=== PATIENT | female | born 1990 | race Caucasian/White ===

== ENCOUNTER → 2019-03-23 | Outpatient (CLI) | payer OTHER, SELFPAY ==
[2019-03-23 15:11] VITALS: BMI 25.0
[2019-03-23 16:28] LABS: Absolute Lymphocyte Count 1.87 X10^3/uL (0.83-4.51); Absolute Neutrophil Count 10.2 X10^3/uL (2.0-7.7); Basophil# 0.06 X10^3/uL; Basophil% 0.5 % (0-1); Eosinophil# 0.15 X10^3/uL; Eosinophils% 1.2 % (0-5); Hematocrit 31.6 % (37-47); Hemoglobin 10.5 g/dL (12.0-15.0); Lymphocyte # 1.87 X10^3/ul (4.0); Lymphocyte % 14.5 % (19-41); Mean Corp Hgb Conc 33.2 g/dL (32-36); Mean Corpuscular Hgb 29.8 pg (27.0-32.0); Mean Corpuscular Volume 89.8 fL (81-99); Mean Platelet Vol. 10.5 fl (6.2-12.0); Monocyte# 0.58 X10^3/uL; Monocyte% 4.5 % (0-10); NRBC Flagged by Analyzer 0 % (0-5); Neutrophil # 10.16 X10^3/uL (2.7-7.7); Neutrophil % 78.5 % (47-70); Platelet Count 209 K/mm3 (150-450); RBC Distribution Width CV 13.1 % (11.6-14.6); RBC Distribution Width SD 42.6 fl (35.1-43.9); Red Blood Count 3.52 M/mm3 (4.2-5.4); White Blood Count 12.9 K/mm3 (4.4-11.0)
[2019-03-23 16:56] LABS: Glucose Challenge Gest 1H 50g 161 mg/dL (70-140)
== END | disposition home or self-care (01) ==
LOC: LAB 15:43
PROVIDERS: Referring Provider Nurse Practitioner Women's Health; Visit Provider Nurse Practitioner Women's Health
DX: Z34.90 Encounter for supervision of normal pregnancy, unspecified, unspecified trimester (principal)
CPT/HCPCS: 36415; 82950; 85025; 86850; 86900; 86901

== ENCOUNTER → 2019-03-29 | Outpatient (CLI) | payer OTHER, SELFPAY ==
[2019-03-23 15:11] VITALS: BMI 25.0
[2019-03-29 07:47] LABS: Glucose GTT-Gestation. Fasting 78 mg/dL (<105)
[2019-03-29 08:38] LABS: Glucose GTT-Gestational 1 Hr 174 mg/dL (<190)
[2019-03-29 09:54] LABS: Glucose GTT-Gestational 2 Hr 159 mg/dL (<165)
[2019-03-29 11:44] LABS: Glucose GTT-Gestational 3 Hr 80 L (<145)
== END | disposition home or self-care (01) ==
PROVIDERS: Referring Provider Obstetrics & Gynecology; Visit Provider Obstetrics & Gynecology
DX: O99.810 Abnormal glucose complicating pregnancy (principal); Z3A.00 Weeks of gestation of pregnancy not specified
CPT/HCPCS: 36415; 82951; 82952

== ENCOUNTER 2019-04-09 16:56 | Outpatient (CLI) | payer OTHER, SELFPAY ==
[2019-04-09 16:20] VITALS: BMI 27.4
[2019-04-09 17:01] VITALS: BMI 27.8
--- NOTE | 2019-04-09 17:30 | OB.TRI.PN ---
Progress Notes Date of Service: 04/10/19 Progress Note: Patient presents for triage evaluation secondary to blood pressures in the office being elevated. Patient is 30 weeks and initial pressure was elevated and all repeats were normal within the 1 teens over 70s. Patient is asymptomatic without any headaches or blurry vision. Labs were collected and blood work was within normal limits however urine protein creatinine ratio was mildly elevated FHT: 140 moderate variability reactive no decelerations category I tracing [place]: No regular contractions Assessment and plan: Proteinuria in reactive NST, reassuring maternal and status patient discharged to home to follow-up tomorrow for repeat blood pressure and return in 24-hour urine. See problem list details for additional plan information. Laboratory Studies: Laboratory Tests 04/09/19 04/09/19 04/09/19 Range/Units 17:10 17:10 17:10 WBC (4.4-11.0) K/mm3 RBC (4.2-5.4) M/mm3 Hgb (12.0-15.0) g/dL Hct (37-47) % MCV (81-99) fL MCH (27.0-32.0) pg MCHC (32-36) g/dL RDW Std Deviation (35.1-43.9) fl RDW Coeff of Linda (11.6-14.6) % Plt Count (150-450) K/mm3 MPV (6.2-12.0) fl PT 12.7 (11.7-14.9) SECONDS INR 1.0 APTT 24.6 (24.1-36.2) Seconds Creatinine 0.64 (0.55-1.02) mg/dL Estim Creat Clear Calc 123.86 ml/min Est GFR (MDRD) Af Amer 139 (>60) mL/min Est GFR (MDRD) Non-Af 115 (>60) mL/min Uric Acid 2.9 (2.6-6.0) mg/dL AST 22 (15-37) U/L ALT 30 (13-56) U/L U Random Total Protein 9.5 (<11.9) mg/dL Urine Creatinine 28.60 (NO RANGE EST.) mg/dL Protein/Creatinin Ratio 332 H (0-200) mg/g CRE 04/09/19 Range/Units 17:10 WBC 11.3 H (4.4-11.0) K/mm3 RBC 3.75 L (4.2-5.4) M/mm3 Hgb 10.9 L (12.0-15.0) g/dL Hct 33.6 L (37-47) % MCV 89.6 (81-99) fL MCH 29.1 (27.0-32.0) pg MCHC 32.4 (32-36) g/dL RDW Std Deviation 44.7 H (35.1-43.9) fl RDW Coeff of Linda 13.7 (11.6-14.6) % Plt Count 201 (150-450) K/mm3 MPV 10.7 (6.2-12.0) fl PT (11.7-14.9) SECONDS INR APTT (24.1-36.2) Seconds Creatinine (0.55-1.02) mg/dL Estim Creat Clear Calc ml/min Est GFR (MDRD) Af Amer (>60) mL/min Est GFR (MDRD) Non-Af (>60) mL/min Uric Acid (2.6-6.0) mg/dL AST (15-37) U/L ALT (13-56) U/L U Random Total Protein (<11.9) mg/dL Urine Creatinine (NO RANGE EST.) mg/dL Protein/Creatinin Ratio (0-200) mg/g CRE - Problem List (1) Proteinuria affecting in third trimester Status: Acute Comment: if 24 hour urine elevated plan BMZ course and home bp checks, growth US and weekly nsts. preeclampsia precautions reviewed. (2) Elevated blood pressure affecting in third trimester, antepartum Status: Acute Multi Select Codes - Urinary/Genital Urinary/Genital CPT Codes: 30343-29 non-stress test Interp
[2019-04-09 17:43] LABS: Hematocrit 33.6 % (37-47); Hemoglobin 10.9 g/dL (12.0-15.0); Mean Corp Hgb Conc 32.4 g/dL (32-36); Mean Corpuscular Hgb 29.1 pg (27.0-32.0); Mean Corpuscular Volume 89.6 fL (81-99); Mean Platelet Vol. 10.7 fl (6.2-12.0); Platelet Count 201 K/mm3 (150-450); RBC Distribution Width CV 13.7 % (11.6-14.6); RBC Distribution Width SD 44.7 fl (35.1-43.9); Red Blood Count 3.75 M/mm3 (4.2-5.4); White Blood Count 11.3 K/mm3 (4.4-11.0)
[2019-04-09 17:53] LABS: Partial Thromboplast Time 24.6 Seconds (24.1-36.2); Prothrombin Time (Protime)PT. 12.7 SECONDS (11.7-14.9)
[2019-04-09 18:11] LABS: Creatinine, Serum 0.64 mg/dL (0.55-1.02); EST Glomerular Filtration Rate 115 mL/min (>60); Estimated Creatinine Clearance 123.86 ml/min
[2019-04-09 18:12] LABS: AST(SGOT) 22 U/L (15-37); Alanine Aminotransfer ALT/SGPT 30 U/L (13-56); Est Glom Filt Rate - Afr Amer 139 mL/min (>60); Uric Acid 2.9 mg/dL (2.6-6.0)
[2019-04-09 19:28] LABS: Protein, Urine (Random) 9.5 mg/dL (<11.9); Protein:Creat Ratio 332 mg/g CRE (0-200)
[2019-04-10 20:10] LABS: 24 Hour Urine Protein 301.6 mg/24HR (<150 MG/24HR); 24HR. UA Prot. Total Volume 2600 mL; 24HR. Urine Creatinine 1.31 g/24 HR (0.70-1.90); Urine Protein (24 Hour) 11.6 mg/dL (<11.9)
== END 2019-04-09 19:37 | disposition home or self-care (01) ==
LOC: WPOUT 16:58 → WP 16:59
PROVIDERS: Referring Provider Obstetrics & Gynecology; Visit Provider Obstetrics & Gynecology
DX: O16.3 Unspecified maternal hypertension, third trimester (principal); O12.13 Gestational proteinuria, third trimester; Z3A.30 30 weeks gestation of pregnancy
CPT/HCPCS: 36415; 59025; 59050; 82565; 82570; 84156; 84450; 84460; 84550; 85027; 85610; 85730; 99218; G0378

== ENCOUNTER 2019-04-10 19:00 | Outpatient (CLI) | payer OTHER, SELFPAY ==
[2019-04-10 19:19] VITALS: BMI 27.8
[2019-04-10] MEDS: Betamethasone/Betamethasone 30 MG/5 ML Vial 12 MG IM (20:36)
--- NOTE | 2019-04-11 08:53 | OB.TRI.PN ---
Progress Notes Date of Service: 04/11/19 Progress Note: Patient seen for second steroid dose. Normal blood pressure denies any headache or blurry vision. Follow-up in office tomorrow. - Problem List (1) Prematurity of fetus Status: Acute (2) Proteinuria affecting in third trimester Status: Acute Comment: if 24 hour urine elevated plan BMZ course and home bp checks, growth US and weekly nsts. preeclampsia precautions reviewed. Multi Select Codes - Urinary/Genital Urinary/Genital CPT Codes: Other Procedure See Report - no charge
--- NOTE | 2019-04-12 21:55 | OB.TRI.PN ---
Progress Notes Date of Service: 04/10/19 Progress Note: seen for 24 hour urine- borderline elevated recommend giving course of steroids. proteinuria of reviewed preeclampsia precautions, normal bps here - Problem List (1) Prematurity of fetus Status: Acute (2) Proteinuria affecting in third trimester Status: Acute Comment: if 24 hour urine elevated plan BMZ course and home bp checks, growth US and weekly nsts. preeclampsia precautions reviewed. Multi Select Codes - Urinary/Genital Urinary/Genital CPT Codes: Other Procedure See Report - no charge
== END 2019-04-10 20:40 | disposition home or self-care (01) ==
LOC: WPOUT 19:20 → OBT 19:22
PROVIDERS: Visit Provider Obstetrics & Gynecology
DX: O12.13 Gestational proteinuria, third trimester (principal); Z3A.00 Weeks of gestation of pregnancy not specified
CPT/HCPCS: 96372; 99218; G0378; J0702

== ENCOUNTER 2019-04-11 19:05 | Outpatient (CLI) | payer OTHER, SELFPAY ==
[2019-04-10 19:19] VITALS: BMI 27.8
[2019-04-11 19:43] VITALS: BMI 27.7
[2019-04-11] MEDS: Betamethasone/Betamethasone 30 MG/5 ML Vial 12 MG IM (19:51)
--- NOTE | 2019-05-03 18:42 | OB.TRI.PN ---
Progress Notes Date of Service: 04/19/19 Progress Note: celestone shot for prematurity Multi Select Codes - Urinary/Genital Urinary/Genital CPT Codes: Other Procedure See Report - no charge
== END 2019-04-11 19:55 | disposition home or self-care (01) ==
LOC: WPOUT 19:17 → WP 19:18
PROVIDERS: Referring Provider Obstetrics & Gynecology; Visit Provider Obstetrics & Gynecology
DX: Z34.90 Encounter for supervision of normal pregnancy, unspecified, unspecified trimester (principal)
CPT/HCPCS: 99218; G0378; J0702

== ENCOUNTER → 2019-04-19 13:38 | Outpatient (CLI) | payer OTHER, SELFPAY ==
[2019-04-12 08:10] VITALS: BMI 27.7
[2019-04-12 14:58] VITALS: BMI 27.7
--- NOTE | 2019-04-19 13:40 | US_ITS ---
STUDY: SECOND AND THIRD TRIMESTER OBSTETRICAL ULTRASOUND - LIMITED REASON FOR EXAM: Female, 29 years old. growth LMP: 09/06/2018 PRIOR ULTRASOUND: None. TECHNIQUE: Transabdominal ultrasound evaluation was performed. FINDINGS: There is a single intrauterine fetus. The fetus is in a cephalic presentation. There is demonstrated cardiac activity with a heart rate of 130 bpm. There is a normal amniotic fluid volume. The largest amniotic fluid pocket measures 4.43 cm. The amniotic fluid index (ERMELINDA) is 11.92 cm. The placenta is anterior with a marginal previa. There are Grade 2 placental changes. The cervix measures 3.04 cm in length. BIOMETRY: BPD: 8.01 cm: 32 weeks, 2 days HC: 29.83 cm: 33 weeks, 1 days AC: 27.95 cm: 32 weeks, 0 days FL: 6.21 cm: 32 weeks, 2 days Age by LMP: 32 weeks, 1 days. SETH by LMP: 06/13/2019. age by current US: 32 weeks, 3 days. SETH by current US: 06/11/2019. Estimated weight: 1917 grams, +/- 280 grams, 40 percentile. US/OB Limited With Biometrics IMPRESSION: Single live intrauterine gestation at approximately 32 weeks and 3 days based on the current ultrasound. Electronically Signed: Fredy Ponce, at 18:40 EDT Tel , Service support ,
== END ==
PROVIDERS: Referring Provider Obstetrics & Gynecology; Visit Provider Obstetrics & Gynecology
DX: Z34.90 Encounter for supervision of normal pregnancy, unspecified, unspecified trimester (principal)
CPT/HCPCS: 76816

== ENCOUNTER 2019-05-21 12:32 | Outpatient (CLI) | payer OTHER, SELFPAY ==
[2019-04-12 08:10] VITALS: BMI 27.7
[2019-05-13 15:32] VITALS: BMI 27.7
--- NOTE | 2019-05-21 12:34 | US_ITS ---
STUDY: SECOND AND THIRD TRIMESTER OBSTETRICAL ULTRASOUND REASON FOR EXAM: Female, 29 years old growth. LMP: September 05, 2018. TECHNIQUE: Transabdominal TECHNICAL QUALITY: Adequate. PRIOR ULTRASOUND: Comparison is made with prior study of April 19, 2019. FINDINGS: There is a single intrauterine fetus. The fetus is in a cephalic presentation. There is demonstrated cardiac activity with a heart rate of 141 bpm. There is a normal amniotic fluid volume. The largest amniotic fluid pocket measures 6.8 cm. The amniotic fluid index (ERMELINDA) is 16 cm. The placenta is anterior in location and is not low lying. There are Grade 2 placental changes. The cervix was not measured due to the position of the head. The adnexal regions are not visualized. BIOMETRY: BPD: 8.98 cm: 37 weeks, 2 days HC: 33.17 cm: 37 weeks, 5 days AC: 33.69 cm: 37 weeks, 4 days FL: 7.04 cm: 36 weeks, 0 days CI: 79% FL/BPD: 78% FL/HC: FL/AC: 21% HC/AC: 0.98 age by current US: 37 weeks, 2 days. SETH by current US: June 09, 2019. Estimated weight: 3121 grams, +/- 462 grams, 65 %. age by prior US: 37 weeks, 0 days. SETH by prior US: June 11, 2019. Age by LMP: 36 weeks, 5 days. SETH by LMP: June 13, 2019. US/OB Limited With Biometrics IMPRESSION: Single live intrauterine gestation with a mean gestational age of 37 weeks. The measurements obtained today following within the normal expected range. Electronically Signed: Cullen Johnson, at 13:14 EDT , Service support ,
[2019-05-21 14:27] VITALS: BMI 28.6
[2019-05-21 14:38] LABS: Absolute Lymphocyte Count 2.13 X10^3/uL (0.83-4.51); Absolute Neutrophil Count 8.7 X10^3/uL (2.0-7.7); Basophil# 0.07 X10^3/uL; Basophil% 0.6 % (0-1); Eosinophil# 0.12 X10^3/uL; Hematocrit 33.9 % (37-47); Hemoglobin 11.3 g/dL (12.0-15.0); Lymphocyte # 2.13 X10^3/ul (4.0); Lymphocyte % 17.9 % (19-41); Mean Corp Hgb Conc 33.3 g/dL (32-36); Mean Corpuscular Volume 89.9 fL (81-99); Mean Platelet Vol. 10.9 fl (6.2-12.0); Monocyte# 0.77 X10^3/uL; Monocyte% 6.5 % (0-10); NRBC Flagged by Analyzer 0 % (0-5); Neutrophil # 8.71 X10^3/uL (2.7-7.7); Neutrophil % 73.2 % (47-70); Platelet Count 171 K/mm3 (150-450); RBC Distribution Width CV 13.5 % (11.6-14.6); RBC Distribution Width SD 44.4 fl (35.1-43.9); Red Blood Count 3.77 M/mm3 (4.2-5.4); White Blood Count 11.9 K/mm3 (4.4-11.0)
--- NOTE | 2019-05-21 19:06 | OB.TRI.HP_ITS ---
History of Present Illness Date of Service: 05/21/19 Was patient seen by the physician?: Yes Reason For Visit: Non reassuring NST in office Date of Service: 05/21/19 Final SETH: 06/13/19 Gestational age: 36 Weeks and 5 Days History of Present Illness: 29 yo with hx of recurrent SAB and anemia with this , sent to [facility] from office for nonreassuring NST and cbc; pt states her cervix was checked in office and found to be 0. She does report feeling contractions, but with minimal pain, max pain score 3/10 Allergies No Known Allergies Allergy (Verified 05/21/19 14:28) - Pertinent Past Medical History Surgical History: Past Surgical History (Last Reviewed 05/21/19 @ 13:20 by Melani French) History of dilation and curettage Laboratory Studies: Laboratory Tests 05/21/19 Range/Units 14:25 WBC 11.9 H (4.4-11.0) K/mm3 RBC 3.77 L (4.2-5.4) M/mm3 Hgb 11.3 L (12.0-15.0) g/dL Hct 33.9 L (37-47) % MCV 89.9 (81-99) fL MCH 30.0 (27.0-32.0) pg MCHC 33.3 (32-36) g/dL RDW Std Deviation 44.4 H (35.1-43.9) fl RDW Coeff of Linda 13.5 (11.6-14.6) % Plt Count 171 (150-450) K/mm3 MPV 10.9 (6.2-12.0) fl Immature Gran % (Auto) 0.800 (0.0-0.9) % Neut % (Auto) 73.2 H (47-70) % Lymph % (Auto) 17.9 L (19-41) % [place] % (Auto) 6.5 (0-10) % Eos % (Auto) 1.0 (0-5) % Baso % (Auto) 0.6 (0-1) % Absolute Neuts (auto) 8.7 H (2.0-7.7) X10^3/uL Absolute Lymphs (auto) 2.13 (0.83-4.51) X10^3/uL Nucleated RBC % 0 (0-5) % Physical Exam General: Alert, Oriented x3, Cooperative, No apparent distress HEENT: PERRLA, EOMI Cardiovascular: Regular rate, Regular Rhythm Lungs: Clear to auscultation, Normal air movement Abdomen: Bowel Sounds Present, Soft, Non Tender, Non-Distended, Gravid Neurological: Cranial nerves II-XII grossly intact, Deep Tendon Reflexes 2+/4 and Symmetrical SPANISH SPEAKING NANNY: Normal external genitalia Presentation: Cephalic Cervix Dilation (cm): 1 - fingertip Station: -3 Effacement (%): 50 - soft NST - FHR Rate Baby A Baseline: 130 Variability:: Moderate Accelerations:: 15 x 15 NST Reactive:: Yes FHR Category:: Category I - One questionable decel at 1507, likely maternal; o verall reassuring Uterine Activity:: Q 2-5 Impression/Plan Assessment: 29 yo with at 36w5d gestation Hx of recurrent SAB Hx of anemia with this , cbc today WNL for third trimester Nonreassuring NST in office today No cervical change from office check today Cat 1 FHTs Plan: D/w Dr. Segundo DC home with labor precautions, FM counts, increased rest and fluids
== END 2019-05-21 19:20 | disposition home or self-care (01) ==
LOC: OPUS 12:33 → WPOUT 14:14 → WP 14:14
PROVIDERS: Nurse Practitioner Women's Health; Referring Provider Advanced Practice Midwife; Visit Provider Advanced Practice Midwife
DX: O99.013 Anemia complicating pregnancy, third trimester (principal); D64.9 Anemia, unspecified; O26.23 Pregnancy care for patient with recurrent pregnancy loss, third trimester; Z3A.36 36 weeks gestation of pregnancy
CPT/HCPCS: 36415; 59025; 59050; 76816; 85025; 87077; 87081; 87186; 99218; G0378; J0702

== ENCOUNTER 2019-06-03 00:36 | Inpatient (IN) | payer OTHER, SELFPAY ==
[2019-03-23 15:11] VITALS: BMI 25.0
[2019-05-28 15:40] VITALS: BMI 28.6
[2019-06-03 00:32] LABS: ROM Internal Control Test YES-OK TO RESULT pt. (Internal QC)
[2019-06-03 00:33] LABS: ROM Patient Test POSITIVE (Negative)
[2019-06-03 00:35] VITALS: BMI 29.0
[2019-06-03] MEDS: Lactated Ringers 1,000 ML 50 ML IV (01:40)
[2019-06-03 01:57] LABS: Absolute Lymphocyte Count 2.11 X10^3/uL (0.83-4.51); Absolute Neutrophil Count 7.5 X10^3/uL (2.0-7.7); Basophil# 0.05 X10^3/uL; Basophil% 0.5 % (0-1); Eosinophil# 0.19 X10^3/uL; Eosinophils% 1.8 % (0-5); Lymphocyte # 2.11 X10^3/ul (4.0); Mean Corp Hgb Conc 32.4 g/dL (32-36); Mean Corpuscular Hgb 29.2 pg (27.0-32.0); Monocyte# 0.57 X10^3/uL; Monocyte% 5.4 % (0-10); NRBC Flagged by Analyzer 0 % (0-5); Neutrophil # 7.54 X10^3/uL (2.7-7.7); Neutrophil % 71.3 % (47-70); Platelet Count 186 K/mm3 (150-450); RBC Distribution Width CV 13.8 % (11.6-14.6); RBC Distribution Width SD 45.4 fl (35.1-43.9); Red Blood Count 4.11 M/mm3 (4.2-5.4); White Blood Count 10.6 K/mm3 (4.4-11.0)
[2019-06-03 02:21] LABS: ALB/GLOB Ratio 0.7 RATIO (0.9-2.4); AST(SGOT) 23 U/L (15-37); Alanine Aminotransfer ALT/SGPT 24 U/L (13-56); Albumin, Serum 2.8 g/dL (3.2-5.0); Alkaline Phosphatase 141 U/L (45-117); Anion Gap 9 (5-15); BUN 7 mg/dL (7-18); Calcium,Total 10.3 mg/dL (8.5-10.1); Chloride 107 mmol/L (98-107); Creatinine, Serum 0.58 mg/dL (0.55-1.02); EST Glomerular Filtration Rate 128 mL/min (>60); Est Glom Filt Rate - Afr Amer 154 mL/min (>60); Estimated Creatinine Clearance 136.67 ml/min; Glucose 85 mg/dL (74-106); Potassium 3.7 mmol/L (3.5-5.1); Protein, Total 6.8 g/dL (6.4-8.2); Sodium Level 140 mmol/L (136-145)
[2019-06-03 02:38] LABS: Rubella IgG 356.8 IU/mL
[2019-06-03] MEDS: Ondansetron 4 MG/2 ML Vial IV (04:41)
[2019-06-03] MEDS: 0.9% Saline Lock 10 ML Syringe IV (04:41)
[2019-06-03] MEDS: Lactated Ringers 500 ML 999 ML IV (05:00)
[2019-06-03] MEDS: fentaNYL-bupivacaine (epidural) 100 ML BAG EPIDURAL ×2 (05:44→09:55)
[2019-06-03] MEDS: Lactated Ringers 1,000 ML 200 ML IV ×2 (08:34→14:37)
--- NOTE | 2019-06-03 12:20 | HP.PCM_ITS ---
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 declines ntd screening. anatomy-normal (6) Proteinuria affecting in third trimester Status: Acute Comment: if 24 hour urine elevated plan BMZ course and home bp checks, growth US and weekly nsts. preeclampsia precautions reviewed. (7) Rh negative status during Status: Acute Qualifiers: Trimester: second trimester Qualified Code(s): O26.892 - Other specified related conditions, second trimester; Z67.91 - Unspecified blood type, Rh negative Comment: rhogam at 28 weeks and PRN (8) Supervision of normal Status: Acute Qualifiers: Normal : other normal Trimester: third trimester Qualified Code(s): Z34.83 - Encounter for supervision of other normal , third trimester Comment: PRR SETH 06/13/19 gender secret Ronald (9) SROM (spontaneous rupture of membranes) Status: Acute History Date of Admission: 06/03/19 Final SETH: 06/13/19 Gestational age: 38 Weeks and 5 Days History of this : This is a 29 year-old, , at 38 weeks gestational age presents with SROM and onset of labor within 6 hours after. she had a complicated by previ ous miscarriage and was an infertility transfer. she denies any infectious symptoms and contractions are regular and painful. Surgical History: Surgical History (Last Reviewed 05/28/19 @ 15:39 by Macy Casiano) History of dilation and curettage Z98.890 Allergies No Known Allergies Allergy (Verified 06/03/19 00:32) Home Medications: Home Medications aspirin 81 mg chewable tablet 81 mg PO DAILY 01/01/19 vitamin#30 30 mg iron-10 mg iron-folic acid 1 mg-omg3 capsule 1 cap PO DAILY cap 01/01/19 ferrous sulfate 325 mg (65 mg iron) tablet 325 mg PO DAILY 04/12/19 Smoking Status: Never smoker Alcohol: None Number of Fetus(es): 1 NST - FHR Rate Baby A Baseline: 130 Variability:: Moderate Accelerations:: 15 x 15 Decelerations:: None NST Reactive:: Yes, Appropriate for gestational age FHR Category:: Category I Uterine Activity:: q 2-3 History Past Pregnancies: Past Pregnancies Delivery Date Name GA/Weeks Outcome Route Weight Gender Labor Length Anesthesia Delivery Location Provider FOB Labs: Mom's Problem List Problem Status Onset Code PROM (premature rupture of membranes) Acute O42.90 Mom's Labs & Results 06/03/19 06/03/19 06/03/19 00:25 01:40 01:40 WBC 10.6 RBC 4.11 L Hgb 12.0 Hct 37.0 MCV 90.0 MCH 29.2 MCHC 32.4 RDW Std Deviation 45.4 H RDW Coeff of Linda 13.8 Plt Count 186 MPV 11.0 Immature Gran % (Auto) 1.000 H Neut % (Auto) 71.3 H Lymph % (Auto) 20.0 [place] % (Auto) 5.4 Eos % (Auto) 1.8 Baso % (Auto) 0.5 Absolute Neuts (auto) 7.5 Absolute Lymphs (auto) 2.11 Nucleated RBC % 0 Sodium Potassium Chloride Carbon Dioxide Anion Gap BUN Creatinine Estim Creat Clear Calc Est GFR (MDRD) Af Amer Est GFR (MDRD) Non-Af BUN/Creatinine Ratio Glucose Calcium Total Bilirubin AST ALT Alkaline Phosphatase Total Protein Albumin Globulin Albumin/Globulin Ratio Vag Amniotic Fld Detect POSITIVE H Rubella IgG Antibody Blood Type O NEGATIVE Antibody Screen Not Reportable Screen Baby's Blood Type Baby's DEBRA 06/03/19 06/03/19 06/03/19 01:40 01:40 01:40 WBC RBC Hgb Hct MCV MCH MCHC RDW Std Deviation RDW Coeff of Linda Plt Count MPV Immature Gran % (Auto) Neut % (Auto) Lymph % (Auto) [place] % (Auto) Eos % (Auto) Baso % (Auto) Absolute Neuts (auto) Absolute Lymphs (auto) Nucleated RBC % Sodium 140 Potassium 3.7 Chloride 107 Carbon Dioxide 24.0 Anion Gap 9 BUN 7 Creatinine 0.58 Estim Creat Clear Calc 136.67 Est GFR (MDRD) Af Amer 154 Est GFR (MDRD) Non-Af 128 BUN/Creatinine Ratio 12.0 Glucose 85 Calcium 10.3 H Total Bilirubin 0.20 AST 23 ALT 24 Alkaline Phosphatase 141 H Total Protein 6.8 Albumin 2.8 L Globulin 4.0 Albumin/Globulin Ratio 0.7 L Vag Amniotic Fld Detect Rubella IgG Antibody 356.8 Blood Type Antibody Screen NEGATIVE Screen Baby's Blood Type Baby's DEBRA 06/03/19 18:40 WBC RBC Hgb Hct MCV MCH MCHC RDW Std Deviation RDW Coeff of Linda Plt Count MPV Immature Gran % (Auto) Neut % (Auto) Lymph % (Auto) [place] % (Auto) Eos % (Auto) Baso % (Auto) Absolute Neuts (auto) Absolute Lymphs (auto) Nucleated RBC % Sodium Potassium Chloride Carbon Dioxide Anion Gap BUN Creatinine Estim Creat Clear Calc Est GFR (MDRD) Af Amer Est GFR (MDRD) Non-Af BUN/Creatinine Ratio Glucose Calcium Total Bilirubin AST ALT Alkaline Phosphatase Total Protein Albumin Globulin Albumin/Globulin Ratio Vag Amniotic Fld Detect Rubella IgG Antibody Blood Type Antibody Screen Screen NEGATIVE Baby's Blood Type A POSITIVE Baby's DEBRA NEGATIVE Course Did the patient receive Yes care? Labs Blood Type: O RH: NEGATIVE RPR/VDRL/Syphilis Nonreactive Rubella status Immune HbSAg Negative Date Done: 11/24/18 Chlamydia Negative Gonorrhea Negative HIV/AIDS Non-Reactive Group B Strep: Positive Current Obstetrical History Gestational Diabetes No Incompetent Cervix No Infertility No IUGR No Macrosomia No Hypertension/Pre-eclampsia No Placenta Previa/Abruption No PTL/PROM No Uterine anomaly No Oligohydramnios No Polyhydramnios No Multiple gestation No Past Medical History Asthma No Diabetes No Hypertension No Heart disease No Mitral valve prolapse No Neurologic/Seizure disorder/ No Migraines Kidney disease No Liver disease No Varicosities No Clotting disorders/Hx of DVT No Thyroid Dysfunction No Other medical diseases No Psychiatric disorders No Major trauma No Abnormal PAP smear No Sleep apnea No Mammogram in the last 2 years No Medications Taken During Reason for taking medication [ 1st trimester for 3 months, history of losses lovenox] Reason for taking medication [ 1st trimester for 3 months, history of losses Progesterone] Social History Marital Status: Alleged father Ronald Kelsey Hx Smoking No Smoking Status Never smoker Review of Systems Constitutional: Denies: Fever, Malaise Eyes: Denies: Blurred vision, Vision Change HEENT: Denies: Head Aches, Visual Changes Cardiovascular: Denies: Chest Pain, Palpitations Respiratory: Denies: Cough, Shortness of Breath, Wheezing Gastrointestinal: Denies: Abdominal Pain, Diarrhea, Nausea, Vomiting Genitourinary: Denies: Dysuria, Hematuria Musculoskeletal: Denies: Joint Pain, Muscle pain Skin: Denies: Lesions, Rash Neurological: Denies: Blurred vision, Focal weakness, Headaches Psychiatric: Denies: Anxiety, Depression Endocrine: Denies: Heat/ Cold Intolerance Hematologic/ Lymphatic: Denies: Easy Bruising, Easy Bleeding Physical Exam General: Alert, Cooperative, No apparent distress HEENT: Atraumatic, Normocephalic. Negative for: Thyromegaly, Lymphadenopathy Cardiovascular: Regular rate Lungs: Normal air movement Abdomen: Soft, Non Tender, Gravid Neurological: Deep Tendon Reflexes 2+/4 and Symmetrical, Neuro grossly intact. Negative for: Clonus STRIPPING CUTTER AND WINDER: Normal external genitalia. Negative for: Vulvar lesions Estimated gestational size: Appropriate for gestational size Presentation: Cephalic Assessment/Plan All Active Problems (Last Reviewed 05/28/19 @ 15:39 by Macy Casiano) SROM (spontaneous rupture of membranes) (Acute) Group B streptococcal infection during (Acute) Proteinuria affecting in third trimester (Acute) Anemia during (Acute) Abnormal glucose affecting (Acute) (Acute) Supervision of normal (Acute) History of recurrent miscarriages (Acute) Rh negative status during (Acute) Elevated blood pressure affecting in third trimester, antepartum (Reso lved) Prematurity of fetus (Resolved) This is a 29 year-old, at 38 weeks gestational age IAL SROM. Patient presents IAL, plan expectant management for , pitocin PRN Pain management: minima intervention but open to epidural. GBS positive plan IV clindamycin based on sensitivity. Management of any complications: proteinuria with nl bps I have reviewed the [facility] and made any clinically relevant updates.
[2019-06-03] MEDS: Oxytocin 30 units/NS 500 ml 30 UNITS/500 ML IV.SOLN 334 UNITS IV (16:40)
--- NOTE | 2019-06-03 16:57 | PCM.OPRPT ---
Problem List (1) Group B streptococcal infection during Status: Acute Comment: treat in labor (2) Proteinuria affecting in third trimester Status: Acute Comment: if 24 hour urine elevated plan BMZ course and home bp checks, growth US and weekly nsts. preeclampsia precautions reviewed. (3) Anemia during Status: Acute Comment: iron, check cbc at 36 weeks (4) Abnormal glucose affecting Status: Acute Comment: 3 hr normal (5) Status: Acute Qualifiers: Weeks of gestation: 37 weeks Qualified Code(s): Z3A.37 - 37 weeks gestation of Comment: genetic and carrier screening negative. declines ntd screening. anatomy-normal (6) Supervision of normal Status: Acute Qualifiers: Normal : other normal Trimester: third trimester Qualified Code(s): Z34.83 - Encounter for supervision of other normal , third trimester Comment: PRR SETH 06/13/19 gender secret Ronald (7) History of recurrent miscarriages Status: Acute Comment: RGI transfer (8) Rh negative status during Status: Acute Qualifiers: Trimester: second trimester Qualified Code(s): O26.892 - Other specified related conditions, second trimester; Z67.91 - Unspecified blood type, Rh negative Comment: rhogam at 28 weeks and PRN (9) PROM (premature rupture of membranes) Status: Acute Report of Operation Date of Procedure: 06/03/19 Pre-Operative Diagnosis: ial Post-Operative Diagnosis: same Surgery/Procedure Performed:: Vaginal Delivery Maternal Presentation: Active Labor ial SROM Amniotic Membrane Rupture Type: Spontaneous at home Amniotic Fluid Description: Clear Date of Procedure: 06/03/19 Pre-Operative Diagnosis: ial Post-Operative Diagnosis: same Surgery/ Procedure Performed: Spontaneous Vaginal Delivery Type of Anesthesia: Epidural Description of Procedure: Patient began pushing and delivered the head in the JUAN presentation. The head was delivered atraumatically . The anterior and posterior shoulders delivered without complication followed by the rest of the and the infant was placed on the maternal abdomen. Delayed cord clamping was employed for approximately 60 seconds. Cord was clamped and cut and gentle traction was applied to the cord and the placenta delivered spontaneously immediately following it was noted to be intact with three-vessel cord. The perineum and vagina were inspected and noted to have a 2nd degree laceration which was repaired in the usual fashion with 3-0 vicryl rapide. Patient and tolerated delivery well. Presentation: JUAN A gender: Female Episiotomy Description: None Laceration: Perineal Extension/lac, 2nd degree Medications given after delivery: IV Pitocin Complications: None
[2019-06-03 20:00] VITALS: BP 128/84; PULSE 97; RESP 16; TEMP 36.3
[2019-06-04] VITALS (7 sets, daily range): BP systolic 114–137; BP diastolic 77–93; PULSE 76–96; RESP 14–18; TEMP 36.5–37
[2019-06-04] MEDS: Naproxen 250 MG Tablet 500 MG PO ×3 (03:45→20:59)
[2019-06-04] MEDS: Senna/Docusate Sodium 1 Tablet PO (09:55)
[2019-06-04] MEDS: Acetaminophen 500 MG Tablet 1000 MG PO (10:02)
--- NOTE | 2019-06-04 18:18 | NURSING ---
Addendum entered by Agustina Clark 06/04/19 18:19: pt. reported bp's ran in 130's during Original Note: blood pressure taken on patient to recheck increasing trend from earlier, pt. denies any symptoms of headache, blurred vision, increased swelling. pt. educated on symptoms to report to health care providers, will continue to monitor
--- NOTE | 2019-06-04 21:28 | PCM.PN.OB ---
Patient Problems: Active and Suspected Problems (Last Reviewed 05/28/19 @ 15:39 by Macy Casiano) SROM (spontaneous rupture of membranes) (Acute) Subjective: doing well no complaints pain controlled no CP SOB N V ambulating well tolerating po lochia moderate, going well - Physical Exam Vitals/I&O's: Vital Signs Temp Pulse Resp BP 98.3 F 80 18 114/78 06/04/19 19:35 06/04/19 19:35 06/04/19 19:35 06/04/19 19:35 Oxygen Delivery Method Room Air Weight: 185 lb Body Mass Index (BMI) 29.0 Intake and Output for Last 24 Hours 06/02/19 06/03/19 06/04/19 23:59 23:59 23:59 Intake Total 3445.00 / 3445.00 Output Total 600 / 1000 400 / 400 Balance 2845.00 / 2445.00 -400 / -400 General: Alert, Oriented x3 Current Medications Acetaminophen (Tylenol) 1,000 mg PO Q8H PRN PRN PRN Reason: Pain Score 1-3/10 Last Admin: 06/04/19 10:02 Dose: 1,000 mg Documented by: Bisacodyl (Dulcolax) 10 mg RECTAL UD PRN PRN Reason: If no BM Dibucaine (Dibucaine) 1 applic TOPICAL TID PRN PRN; Protocol PRN Reason: Discomfort Hydrocortisone (Hytone) 1 applic TOPICAL TID PRN PRN; Protocol PRN Reason: Discomfort Methylergonovine Maleate (Methergine) 0.2 mg IM X1 PRN PRN Reason: Excess bleeding/uterine atony Naproxen (Naprosyn) 500 mg PO Q8H PRN PRN PRN Reason: Pain Score 1-3/10 Last Admin: 06/04/19 20:59 Dose: 500 mg Documented by: Ondansetron HCl (Zofran) 4 mg IV Q4H PRN PRN PRN Reason: Nausea Oxycodone HCl (Oxyir) 5 - 10 mg PO Q4H PRN PRN PRN Reason: Pain Score 4-10/10 Senna/Docusate Sodium (Senokot-S, Vicki-Colace) 1 - 2 tablet PO DAILY PRN PRN PRN Reason: Constipation Last Admin: 06/04/19 09:55 Dose: 1 tablet Documented by: Simethicone (Mylicon) 80 mg PO PCHS PRN PRN Reason: Indigestion/Stomach pain Sodium Chloride () 5 - 15 ml IV UD PRN PRN Reason: SALINE FLUSH Medical Necessity - Tobacco Use Smoking Status: Never smoker Assessment/Plan All Active Problems (Last Reviewed 05/28/19 @ 15:39 by Macy Casiano) SROM (spontaneous rupture of membranes) (Acute) Group B streptococcal infection during (Acute) Proteinuria affecting in third trimester (Acute) Anemia during (Acute) Abnormal glucose affecting (Acute) (Acute) Supervision of normal (Acute) History of recurrent miscarriages (Acute) Rh negative status during (Acute) Elevated blood pressure affecting in third trimester, antepartum (Resolved) Prematurity of fetus (Resolved) s/p PPD # 1 1. routine post delivery care 2. breast feeding- support given 3. rh negative- rhogam PRN 4. rubella immune
[2019-06-05 02:00] VITALS: BP 125/88; PULSE 80; RESP 18; TEMP 36.6
--- NOTE | 2019-06-05 04:32 | PCM.PN.OB ---
Patient Problems: Active and Suspected Problems (Last Reviewed 05/28/19 @ 15:39 by Macy Casiano) SROM (spontaneous rupture of membranes) (Acute) Subjective: doing well no complaints pain controlled no CP SOB N V ambulating well tolerating po lochia moderate, going well - Physical Exam Vitals/I&O's: Vital Signs Temp Pulse Resp BP 98 F 80 18 125/88 H 06/05/19 02:00 06/05/19 02:00 06/05/19 02:00 06/05/19 02:00 Oxygen Delivery Method Room Air Weight: 185 lb Body Mass Index (BMI) 29.0 Intake and Output for Last 24 Hours 06/03/19 06/04/19 06/05/19 23:59 23:59 23:59 Intake Total 3445.00 / 3445.00 Output Total 600 / 1000 400 / 400 Balance 2845.00 / 2445.00 -400 / -400 General: Alert, Oriented x3 Current Medications Acetaminophen (Tylenol) 1,000 mg PO Q8H PRN PRN PRN Reason: Pain Score 1-3/10 Last Admin: 06/04/19 10:02 Dose: 1,000 mg Documented by: Bisacodyl (Dulcolax) 10 mg RECTAL UD PRN PRN Reason: If no BM Dibucaine (Dibucaine) 1 applic TOPICAL TID PRN PRN; Protocol PRN Reason: Discomfort Hydrocortisone (Hytone) 1 applic TOPICAL TID PRN PRN; Protocol PRN Reason: Discomfort Methylergonovine Maleate (Methergine) 0.2 mg IM X1 PRN PRN Reason: Excess bleeding/uterine atony Naproxen (Naprosyn) 500 mg PO Q8H PRN PRN PRN Reason: Pain Score 1-3/10 Last Admin: 06/04/19 20:59 Dose: 500 mg Documented by: Ondansetron HCl (Zofran) 4 mg IV Q4H PRN PRN PRN Reason: Nausea Oxycodone HCl (Oxyir) 5 - 10 mg PO Q4H PRN PRN PRN Reason: Pain Score 4-10/10 Senna/Docusate Sodium (Senokot-S, Vicki-Colace) 1 - 2 tablet PO DAILY PRN PRN PRN Reason: Constipation Last Admin: 06/04/19 09:55 Dose: 1 tablet Documented by: Simethicone (Mylicon) 80 mg PO PCHS PRN PRN Reason: Indigestion/Stomach pain Sodium Chloride () 5 - 15 ml IV UD PRN PRN Reason: SALINE FLUSH Medical Necessity - Tobacco Use Smoking Status: Never smoker Assessment/Plan All Active Problems (Last Reviewed 05/28/19 @ 15:39 by Macy Casiano) SROM (spontaneous rupture of membranes) (Acute) Group B streptococcal infection during (Acute) Proteinuria affecting in third trimester (Acute) Anemia during (Acute) Abnormal glucose affecting (Acute) (Acute) Supervision of normal (Acute) History of recurrent miscarriages (Acute) Rh negative status during (Acute) Elevated blood pressure affecting in third trimester, antepartum (Resolved) Prematurity of fetus (Resolved) s/p PPD # 2 1. routine post delivery care 2. breast feeding- support given 3. rh negative- rhogam PRN 4. rubella immune
--- NOTE | 2019-06-05 04:34 | DCINST_ITS ---
Discharge Diet: No Restrictions Discharge Activity: Return to Normal Activity, May not drive while taking narcotic pain medications., May Shower May resume sexual activity in: 4-6 weeks Call your doctor if your incision/area has: Continuous Slow Oozing, Sudden Increased Bleeding, Increased Pain/ Swelling, Increased Redness, Foul Smelling Discharge Additional Instructions: If you experience any of the following, contact your healthcare provider. * Bleeding that soaks a pad every hour for 2 hours * Fever 100.4 or higher * Unrelieved incision or abdominal pain * Swelling, redness, discharge or bleeding from your incision or episiotomy site * Your incision begins to separate * Problems urinating (including inability to urinate or burning while urinating). * Visual changes * Severe headache * Flu-like symptoms * Pain or redness in one of both of your breasts * Pain, warmth, tenderness or swelling in your legs, especially the calf area * Frequent nausea and vomiting * Symptoms of depression or anxiety If you experience any of the following, call 911 or go to the nearest Emergency Room. * Chest pain * Problems breathing * Seizure activity * Partial or complete paralysis of a body part, slurred speech, weakness or drooping of the face, or a sudden inability to walk or hold your balance Allergies/Adverse Reactions: Allergies No Known Allergies Allergy (Verified 06/03/19 00:32) Medications to take at Discharge aspirin 81 mg chewable tablet 81 mg PO DAILY 01/01/19 vitamin#30 30 mg iron-10 mg iron-folic acid 1 mg-omg3 capsule 1 cap PO DAILY cap 01/01/19 ferrous sulfate 325 mg (65 mg iron) tablet 325 mg PO DAILY 04/12/19 Naproxen [Naprosyn] 250 - 500 mg PO Q8H PRN PRN #30 tab 06/05/19 Oxycodone HCl/Acetaminophen [Percocet 5-325] 1 - 2 tablet PO Q6H PRN PRN 7 Days #15 tablet 06/05/19 The following prescriptions were given: Naproxen [Naprosyn] 250 - 500 mg PO Q8H PRN PRN #30 tab PRN Reason: MILD PAIN Transmission Status: Pending to [facility] Oxycodone HCl/Acetaminophen [Percocet 5-325] 1 - 2 tablet PO Q6H PRN PRN 7 Days #15 tablet PRN Reason: Pain Transmission Status: Sent to [facility] Please Follow Up With: Buffy Coleman MD - [phone] When: Call to make an appointment with your doctor in 6 weeks. If you had elevated Blood pressure or 4th degree laceration you will need to be seen in 2 weeks. Primary Care Physician: Care Physician,No Primary [Primary Care Provider] - Test Results: Test results from this visit will be discussed in further detail at your follow- up appointment, if applicable.
[2019-06-05] MEDS: Senna/Docusate Sodium 1 Tablet PO (06:14)
[2019-06-05] MEDS: Naproxen 250 MG Tablet 500 MG PO (06:15)
[2019-06-05 09:00] VITALS: BP 118/86; PULSE 84; RESP 14; TEMP 37.2
[2019-06-05 14:05] VITALS: BP 133/93; PULSE 101; RESP 16; TEMP 36.6
== END 2019-06-05 14:05 | disposition home or self-care (01) | DRG 807 ==
LOC: WPOUT 00:37
PROVIDERS: Admitting Provider Obstetrics & Gynecology; Referring Provider Obstetrics & Gynecology; Visit Provider Obstetrics & Gynecology
DX: O99.824 Streptococcus B carrier state complicating childbirth (principal); Z37.0 Single live birth; Z3A.38 38 weeks gestation of pregnancy; N96 Recurrent pregnancy loss; O26.893 Other specified pregnancy related conditions, third trimester; Z67.91 Unspecified blood type, Rh negative; N97.9 Female infertility, unspecified; O70.1 Second degree perineal laceration during delivery
CPT/HCPCS: 59025; 59050; 80053; 84112; 85025; 85461; 86762; 86850; 86900; 86901; 90384; 99218; J7120; A4216; G0378; J2405; J2790

== ENCOUNTER → 2019-07-16 16:57 | Outpatient (CLI) | payer OTHER, SELFPAY ==
[2019-07-16 15:22] VITALS: BMI 29.0
[2019-07-27 15:57] LABS: HPV APTIMA, High Risk Negative
== END ==
PROVIDERS: Referring Provider Obstetrics & Gynecology; Visit Provider Obstetrics & Gynecology
DX: Z12.4 Encounter for screening for malignant neoplasm of cervix (principal)
CPT/HCPCS: 87624; 88175; G0145

== ENCOUNTER → 2020-08-29 10:24 | Outpatient (CLI) | payer BC, SELFPAY ==
[2020-08-29 09:41] VITALS: BMI 24.9
[2020-09-01 20:07] LABS: Dilute Prothrombin Time (dPT) 34.4 sec (0.0-55.0); Dilute Russell Viper Venom 34.1 sec (0.0-47.0); PTT-LA 36.6 sec (0.0-51.9); Thrombin Time 18.8 sec (0.0-23.0); dPT Confirm Ratio 1.08 Ratio (0.00-1.40)
[2020-09-01 20:49] LABS: Anti-Cardiolipin Ab, IgA, Qn < 9 APL U/mL (0-11); Anti-Cardiolipin Ab, IgG, Qn < 9 GPL U/mL (0-14); Anti-Cardiolipin Ab, IgM, Qn < 9 MPL U/mL (0-12); Beta-2-Glycoprotein I IgA <9 (0-25); Beta-2-Glycoprotein I IgG <9 (0-20); Beta-2-Glycoprotein I IgM <9 (0-32); Interpretation Comment: (.)
== END ==
PROVIDERS: Referring Provider Obstetrics & Gynecology; Visit Provider Obstetrics & Gynecology
DX: N96 Recurrent pregnancy loss (principal)
CPT/HCPCS: 36415; 86146; 86147

== ENCOUNTER → 2021-06-26 11:34 | Outpatient (CLI) | payer BC, SELFPAY ==
[2021-06-26 12:05] LABS: Amphetamine Urine VISTA NEGATIVE (<1000 ng/mL); Barbiturate Urine VISTA NEGATIVE (< 200 ng/mL); Benzodiazepine Urine VISTA NEGATIVE (< 200 ng/mL); Cocaine Urine VISTA NEGATIVE (< 300 ng/mL); Ecstacy Urine VISTA NEGATIVE (< 500 ng/mL); Methadone Urine VISTA NEGATIVE (< 300 ng/mL); PCP Urine VISTA NEGATIVE (< 25 ng/mL); Protein, Urine (Random) 15.4 mg/dL (<11.9); Protein:Creat Ratio 80 mg/g CRE (0-200); THC Urine VISTA NEGATIVE (< 50 ng/mL); Vista UDS pH Range 6
[2021-06-27 22:06] LABS: Chlamydia By Nucleic Acid AMP Negative (Negative)
[2021-06-27 22:50] LABS: Gonococcus By Nucleic Acid AMP Negative (Negative)
== END ==
PROVIDERS: Referring Provider Obstetrics & Gynecology; Visit Provider Obstetrics & Gynecology
DX: O13.9 Gestational [pregnancy-induced] hypertension without significant proteinuria, unspecified trimester (principal); O09.90 Supervision of high risk pregnancy, unspecified, unspecified trimester; Z3A.00 Weeks of gestation of pregnancy not specified
CPT/HCPCS: 80307; 82570; 84156; 87077; 87086; 87088; 87186; 87491; 87591

== ENCOUNTER → 2021-07-06 15:47 | Outpatient (CLI) | payer BC, SELFPAY ==
[2021-07-06 17:20] LABS: Absolute Lymphocyte Count 2.33 X10^3/uL (0.83-4.51); Absolute Neutrophil Count 6.8 X10^3/uL (2.0-7.7); Basophil# 0.05 X10^3/uL; Basophil% 0.5 % (0-1); Eosinophil# 0.17 X10^3/uL; Eosinophils% 1.7 % (0-5); Hematocrit 38.6 % (37-47); Hemoglobin 12.9 g/dL (12.0-15.0); Lymphocyte # 2.33 X10^3/ul (0.83-4.51); Lymphocyte % 23.5 % (19-41); Mean Corp Hgb Conc 33.4 g/dL (32-36); Mean Corpuscular Hgb 28.4 pg (27.0-32.0); Mean Corpuscular Volume 84.8 fL (81-99); Mean Platelet Vol. 10.9 fl (6.2-12.0); Monocyte# 0.48 X10^3/uL; Monocyte% 4.8 % (0-10); NRBC Flagged by Analyzer 0 % (0-5); Neutrophil # 6.83 X10^3/uL (2.7-7.7); Neutrophil % 69.1 % (47-70); Platelet Count 254 K/mm3 (150-450); RBC Distribution Width CV 12.7 % (11.6-14.6); RBC Distribution Width SD 39.2 fl (35.1-43.9); Red Blood Count 4.55 M/mm3 (4.2-5.4); White Blood Count 9.9 K/mm3 (4.4-11.0)
[2021-07-09 12:17] LABS: HIV - WCH Non-Reactive (Nonreactive); Hepatitis B Surface Antigen Non-Reactive (Nonreactive); Hepatitis C Antibody Non-Reactive (Nonreactive); Rubella IgG Reactive (Nonreactive); Syphilis Antibodies Non-reactive
== END ==
PROVIDERS: Visit Provider Obstetrics & Gynecology
DX: O09.90 Supervision of high risk pregnancy, unspecified, unspecified trimester (principal); Z3A.00 Weeks of gestation of pregnancy not specified
CPT/HCPCS: 36415; 85025; 86703; 86762; 86780; 86803; 86850; 86900; 86901; 87340

== ENCOUNTER 2021-11-09 14:45 | Outpatient (CLI) | payer BC, SELFPAY ==
[2021-11-09 16:08] LABS: Absolute Lymphocyte Count 1.98 X10^3/uL (0.83-4.51); Basophil# 0.05 X10^3/uL; Basophil% 0.5 % (0-1); Eosinophil# 0.17 X10^3/uL; Eosinophils% 1.6 % (0-5); Hematocrit 32.4 % (37-47); Hemoglobin 10.8 g/dL (12.0-15.0); Lymphocyte # 1.98 X10^3/ul (0.83-4.51); Lymphocyte % 18.5 % (19-41); Mean Corp Hgb Conc 33.3 g/dL (32-36); Mean Corpuscular Volume 87.1 fL (81-99); Mean Platelet Vol. 10.7 fl (6.2-12.0); Monocyte# 0.46 X10^3/uL; Monocyte% 4.3 % (0-10); NRBC Flagged by Analyzer 0 % (0-5); Neutrophil # 7.99 X10^3/uL (2.7-7.7); Neutrophil % 74.4 % (47-70); Platelet Count 217 K/mm3 (150-450); RBC Distribution Width CV 13.2 % (11.6-14.6); RBC Distribution Width SD 41.8 fl (35.1-43.9); Red Blood Count 3.72 M/mm3 (4.2-5.4); White Blood Count 10.7 K/mm3 (4.4-11.0)
[2021-11-09 16:27] LABS: Glucose Challenge Gest 1H 50g 161 mg/dL (70-140)
[2021-11-09 18:47] VITALS: BP 123/75; PULSE 105
--- NOTE | 2021-11-22 07:45 | OB.TRI.HP_ITS ---
HPI - General HPI Narrative CARLA BANERJEE, is a 31 F who presents for a rhogam injection due to supply issue in our office today. Maternal Data Information SETH Calculator Estimated Delivery Date Method Current WG Current Estimate 01/27/22 Ultrasound #1 30w 4d Other Estimates 01/20/22 LMP (Certain) 31w 4d PFSH PFS Medical History (Updated 11/21/21 @ 10:44 by Melani French) Gestational diabetes Home Medications aspirin 81 mg chewable tablet 81 mg PO DAILY 06/14/21 [History Last Taken Unknown] multivitamin no.47-iron fum 27 mg-folate no.1 1 mg-dha 300 mg capsule cap PO 06/14/21 [History Last Taken Unknown] doxylamine 10 mg-pyridoxine (vit B6) 10 mg tablet,delayed release 1 tab PO BID 30 Days #60 tab 06/26/21 [Rx Last Taken Unknown] ondansetron 4 mg disintegrating tablet 4 mg PO Q8H PRN 15 Days #30 tab 06/26/21 [Rx Last Taken Unknown] Allergy/AdvReac Type Severity Reaction Status Date / Time No Known Allergies Allergy Verified 11/09/21 15:39 Surgical History History of dilation and curettage Social History adopted: No household members: family housing: house number of children: 1 current occupational status: employed Smoking Status: Never smoker alcohol intake: never substance use type: does not use caffeine: Yes what type of physical activity do you participate in: walking seatbelt use: always do you feel safe at home: Yes additional social history: [employer] 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 Date Name GA/Weeks Outcome Route Bth Weight Infant Gen Labor Lgth Anesthesia Del Locatn Provider FOB 06/03/19 Steffi 38 live - full term 7lbs 14oz Female 18 hours epidural [facility] Ronald Visit Details Expected Delivery Route/Plan Labor Preferences- CB/BF classes: [] labor support person: [] labor intervention preferences: [] pain management options preferred: [] cut cord/dad catch: [] : [] PP control planned: [] discussed possible routes of delivery and associated risks: [] special requests: [] Plans Covid status: counseled regarding risk of covid in vs vaccination and declined vaccination Flu vaccine: declined Tdap vaccine: [] Rhogam: [] LARC form signed: [] Problem list reviewed and updated with the most current plan of care details and appropriate orders placed. Relevant counseling for the gestational age provided. Continue routine care and follow up unless otherwise noted in visit notes/problem list details OB Flowsheet Initial Weight: 159 lb Date -?-?-?-?-?-?-?-?-?-?-?-?- EGA Weight BP Urine Prot -?-?-?-?-?-?-?-?-?-?-?-?- Glucose FHR FuHt Pres Dilation -?-?-?-?-?-?-?-?-?-?-?-?- Effaced St Visit Note 06/26/21 -?-?-?-?-?-?-?-?-?-?-?-?- 9w 2d 159 lb 8 oz (+8 oz) 130/94 -?-?-?-?-?-?-?-?-?-?-?-?- -?-?-?-?-?-?-?-?-?-?-?-?- JV- CRL measures 9w2d and not consistent with LMP. Due date is 01/27/2021. deciding on NIPT. 07/26/21 -?-?-?-?-?-?-?-?-?-?-?-?- 13w 4d 160 lb 8 oz (+1 lb 8 oz) 110/80 Negative -?-?-?-?-?-?-?-?-?-?-?-?- Negative 153 -?-?-?-?-?-?-?-?-?-?-?-?- JV- no vaginal b leeding, no leaking fluid or cramping. 08/20/21 -?-?-?-?-?-?-?-?-?-?-?-?- 17w 1d 163 lb (+4 lb) 132/84 Negative -?-?-?-?-?-?-?-?-?-?-?-?- Negative 150 -?-?-?-?-?-?-?-?-?-?-?-?- SM- no vb sarahmpi ng 09/17/21 -?-?-?-?-?-?-?-?-?-?-?-?- 21w 1d 170 lb 4 oz (+11 lb 4 oz) 124/82 Negative -?-?-?-?-?-?-?-?-?-?-?-?- Negative 149 -?-?-?-?-?-?-?-?-?-?-?-?- MH-Recent covid. On ASA. Growth US 32 and 36wk ordered. No VB, LOF. Good FM. 10/16/21 -?-?-?-?-?-?-?-?-?-?-?-?- 25w 2d 171 lb 2 oz (+12 lb 2 oz) 120/88 Negative -?-?-?-?-?-?-?-?-?-?-?-?- Negative 147 -?-?-?-?-?-?-?-?-?-?-?-?- JV- no complaint s today.no loss of fluid, vaginal bleeding, or dec fm. 11/09/21 -?-?-?-?-?-?-?-?-?-?-?-?- 28w 5d 123/75 -?-?-?-?-?-?-?-?-?-?-?-?- -?-?-?-?-?-?-?-?-?-?--?-?- 11/09/21 -?-?-?-?-?-?-?-?-?-?-?-?- 28w 5d 175 lb 4 oz (+16 lb 4 oz) 138/88 Negative -?-?-?-?-?-?-?-?-?-?-?-?- Negative 147 29 -?-?-?-?-?-?-?-?-?-?-?-?- JV- JV- no lof, vaginal bleeding , or dec fm. rhogam has to be given on l&d due to office supply issue Assessment & Plan (1) Rh negative status during : COMMENT: Needs rhogam PRN and at 28 weeks PLAN: rhogam to be administered only during today's visit. pt was examined in office minutes prior to visit
== END 2021-11-09 23:59 | disposition home or self-care (01) ==
LOC: LAB 14:48 → WPOUT 16:25 → WP 16:27
PROVIDERS: Visit Provider Obstetrics & Gynecology
DX: O26.893 Other specified pregnancy related conditions, third trimester (principal); Z67.91 Unspecified blood type, Rh negative; Z3A.28 28 weeks gestation of pregnancy
CPT/HCPCS: 36415; 82950; 85025; 86850; 86900; 86901; 90384; 96372; 99218; G0378; J2790

== ENCOUNTER 2021-11-20 06:50 | Outpatient (CLI) | payer BC, SELFPAY ==
[2021-11-20 07:38] LABS: Glucose GTT-Gestation. Fasting 91 mg/dL (<105)
[2021-11-20 08:35] LABS: Glucose GTT-Gestational 1 Hr 201 mg/dL (<190)
[2021-11-20 09:30] LABS: Glucose GTT-Gestational 2 Hr 170 mg/dL (<165)
[2021-11-20 11:04] LABS: Glucose GTT-Gestational 3 Hr 105 L (<145)
== END 2021-11-20 23:59 | disposition home or self-care (01) ==
LOC: LAB 06:52
PROVIDERS: Referring Provider Obstetrics & Gynecology; Visit Provider Obstetrics & Gynecology
DX: Z13.1 Encounter for screening for diabetes mellitus (principal)
CPT/HCPCS: 36415; 82951; 82952

== ENCOUNTER → 2021-12-03 | Outpatient (CLI) | payer BC, SELFPAY ==
--- NOTE | 2021-12-03 16:41 | US_ITS ---
STUDY: SECOND AND THIRD TRIMESTER OBSTETRICAL ULTRASOUND - LIMITED REASON FOR EXAM: Female, 31 years old. growth @ 32 weeks PRIOR ULTRASOUND: None. TECHNIQUE: Transabdominal TECHNICAL QUALITY: Adequate. FINDINGS: There is a single intrauterine fetus. The fetus is in a cephalic presentation. There is demonstrated cardiac activity with a heart rate of 153 bpm. There is a normal amniotic fluid volume. The largest amniotic fluid pocket measures 4.8 cm. The amniotic fluid index (ERMELINDA) is 13.7 cm. The placenta is anterior in location and is not low lying. There are Grade 1 placental changes. The cervix measures cm in length: 4.1. BIOMETRY: BPD: 75 mm: 29 weeks, 6 days HC: 300 mm: 33 weeks, 1 days AC: 291 mm: 33 weeks, 0 days FL: 61 mm: 31 weeks, 6 days CI: 70 FL/AC: 21 FL/BPD: 82 HC/AC: 1.03 age by current US: 32 weeks, 2 days. SETH by current US: 6.25.22. Estimated weight: 1943 grams, +/- 291 grams, 44 %. Age by LMP: 32 weeks, 1 days. SETH by LMP: 6.26.22. US/OB Limited With Biometrics IMPRESSION: There is a single live intrauterine with a heart rate of 153 bpm. age by current US: 32 weeks, 2 days. SETH by current US: 6.25.22. Estimated weight: 1943 grams, +/- 291 grams, 44 %. Electronically Signed: Panchito Downs MD at 18:43 EDT ,
== END | disposition home or self-care (01) ==
PROVIDERS: Visit Provider Nurse Practitioner Women's Health
DX: O98.519 Other viral diseases complicating pregnancy, unspecified trimester (principal); U07.1 COVID-19; Z3A.00 Weeks of gestation of pregnancy not specified
CPT/HCPCS: 76816

== ENCOUNTER 2021-12-18 10:00 | Outpatient (RCR) | payer BC, SELFPAY | END 2022-01-01 23:59 | LOC: DC 10:00 | PROVIDERS: Visit Provider Obstetrics & Gynecology | DX: O24.419 Gestational diabetes mellitus in pregnancy, unspecified control (principal); Z3A.00 Weeks of gestation of pregnancy not specified | CPT/HCPCS: 97802; 97803 ==

== ENCOUNTER → 2021-12-21 | Outpatient (CLI) | payer BC, SELFPAY ==
[2021-12-21 19:04] LABS: Protein, Urine (Random) 6.1 mg/dL (<11.9); Protein:Creat Ratio 296 mg/g CRE (0-200)
== END | disposition home or self-care (01) ==
LOC: LABSPEC 16:58
PROVIDERS: Referring Provider Obstetrics & Gynecology; Visit Provider Obstetrics & Gynecology
DX: O16.9 Unspecified maternal hypertension, unspecified trimester (principal); Z3A.00 Weeks of gestation of pregnancy not specified
CPT/HCPCS: 82570; 84156

== ENCOUNTER → 2022-01-01 | Outpatient (CLI) | payer BC, SELFPAY ==
--- NOTE | 2022-01-01 16:31 | US_ITS ---
EXAM: US , LIMITED CLINICAL INDICATION: GROWTH TECHNIQUE: Real-time limited ultrasound of the maternal uterus with image documentation. This report was created using [employer] report generation technology. COMPARISON: 12/03/2021 FINDINGS: FETUS: There is an intrauterine gestation. GESTATIONAL AGE: Gestational age of 36 weeks 2 days. EFW: Estimated weight 2808 g, 43rd percentile. BPD: Biparietal diameter 8.4 cm age 33 weeks 4 days, 4th percentile. HC: Head circumference 32 cm age 36 weeks 0 days, 18th percentile. AC: Abdominal circumference 32.5 cm age 36 weeks 2 days, 64th percentile. FL: Femur length 7.1 cm age of 36 weeks 1 day, 43rd percentile. POSITION: Fetus is in cephalic position. HEART RATE: heart rate 166 bpm. PLACENTA: Placenta is anterior. AMNIOTIC FLUID: ERMELINDA measures 10.5 cm. CERVIX: The cervix measures 3.3 cm. OTHER FINDINGS: Estimated due date 01/27/2022. US/OB Limited With Biometrics IMPRESSION: Intrauterine gestation with an average ultrasound age of 35 weeks 4 days and ultrasound estimated due date of 02/01/2022. ERMELINDA is 10.5 cm in heart rate is 166 bpm. Electronically Signed: Moy Kulkarni MD at 22:12 EDT ,
== END | disposition home or self-care (01) ==
PROVIDERS: Visit Provider Nurse Practitioner Women's Health
DX: O98.519 Other viral diseases complicating pregnancy, unspecified trimester (principal); U07.1 COVID-19; Z3A.00 Weeks of gestation of pregnancy not specified
CPT/HCPCS: 76816

== ENCOUNTER 2022-01-02 09:55 | Outpatient (RCR) | payer BC, SELFPAY | END 2022-01-31 23:59 | LOC: DC 09:55 | PROVIDERS: Visit Provider Obstetrics & Gynecology | DX: O24.419 Gestational diabetes mellitus in pregnancy, unspecified control (principal); Z3A.00 Weeks of gestation of pregnancy not specified | CPT/HCPCS: 97803 ==

== ENCOUNTER → 2022-01-09 | Outpatient (CLI) | payer BC, SELFPAY ==
[2022-01-09 17:06] LABS: Protein, Urine (Random) < 6.0 mg/dL (<11.9); Protein:Creat Ratio 350 mg/g CRE (0-200)
== END | disposition home or self-care (01) ==
LOC: LABSPEC 16:50
PROVIDERS: Visit Provider Obstetrics & Gynecology
DX: O16.3 Unspecified maternal hypertension, third trimester (principal); Z3A.00 Weeks of gestation of pregnancy not specified
CPT/HCPCS: 82570; 84156

== ENCOUNTER 2022-01-10 07:02 | Inpatient (IN) | payer BC, SELFPAY ==
[2022-01-10] VITALS (44 sets, daily range): BP systolic 122–163; BP diastolic 77–106; PULSE 73–103; RESP 16; TEMP 36.1–36.6; O2SAT 94–100; BMI 28.6
[2022-01-10] MEDS: Oxytocin 30 units/NS 500 ml 30 UNITS/500 ML IV.SOLN IV (08:10)
[2022-01-10] MEDS: Lactated Ringers 1,000 ML 50 ML IV (08:10)
--- NOTE | 2022-01-10 08:19 | HP.PCM.OB_ITS ---
HPI - General General Date of Admission: 01/10/22 HPI Narrative CARLA BANERJEE, is a 31 y/o @ 37 weeks 4 days who presents to L&D for IOL due to mild pre-eclampsia Maternal Data Information SETH Calculator Estimated Delivery Date Method Current WG Current Estimate 01/27/22 Ultrasound #1 37w 4d Other Estimates 01/20/22 LMP (Certain) 38w 4d [facility] Medical History Gestational diabetes Home Medications aspirin 81 mg chewable tablet 81 mg PO DAILY 06/14/21 [History Last Taken 01/09/22 22:00 81 mg] multivitamin no.47-iron fum 27 mg-folate no.1 1 mg-dha 300 mg capsule 1 cap PO DAILY 06/14/21 [History Last Taken 01/09/22 22:00 1 cap] Allergy/AdvReac Type Severity Reaction Status Date / Time No Known Allergies Allergy Verified 01/10/22 07:33 Surgical History History of dilation and curettage Social History adopted: No household members: family housing: house number of children: 1 current occupational status: employed Smoking Status: Never smoker alcohol intake: never substance use type: does not use caffeine: Yes what type of physical activity do you participate in: walking seatbelt use: always do you feel safe at home: Yes additional social history: [employer] 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 Date Name GA/Weeks Outcome Route Bth Weight Gen Labor Lgth Anesthesia Del Locatn Provider FOB 06/03/19 Steffi 38 live - full term 7lbs 14oz Female 18 hours epidural [facility] Ronald Visit Details Expected Delivery Route/Plan Labor Preferences- labor support person: [] labor intervention preferences: [] pain management options preferred: [] cut cord/dad catch: [] : [] PP control planned: [] discussed possible routes of delivery and associated risks: [] special requests: [] Plans Covid status: counseled regarding risk of covid in vs vaccination and declined vaccination Flu vaccine: declined Tdap vaccine: declined Rhogam: given LARC form signed: [] movement and labor precautions reviewed. Problem list reviewed and updated with the most current plan of care details and appropriate orders placed. Relevant counseling for the gestational age provided. Continue routine care and follow up unless otherwise noted in visit notes/problem list details OB Flowsheet Initial Weight: 159 lb Date -?-?-?-?-?-?-?-?-?-?-?-?- EGA Weight BP Urine Prot -?-?-?-?-?-?-?-?-?-?-?-?- Glucose FHR FuHt Pres Dilation -?-?-?-?-?-?-?-?-?-?-?-?- Effaced St Visit Note 06/26/21 -?-?-?-?-?-?-?-?-?-?-?-?- 9w 2d 159 lb 8 oz (+8 oz) 130/94 -?-?-?-?-?-?-?-?--?-?-?-?- -?-?-?-?-?-?-?-?-?-?-?-?- JV- CRL measures 9w2d and not consistent with LMP. Due date is 01/27/2021. deciding on NIPT. 07/26/21 -?-?--?-?-?-?-?-?-?-?-?-?- 13w 4d 160 lb 8 oz (+1 lb 8 oz) 110/80 Negative -?-?-?-?-?-?-?-?-?-?-?-?- Negative 153 -?-?-?-?-?-?-?-?-?-?-?-?- JV- no vaginal b leeding, no leaking fluid or cramping. 08/20/21 -?-?-?-?-?-?-?-?-?-?-?-?- 17w 1d 163 lb (+4 lb) 132/84 Negative -?-?-?-?-?-?-?-?-?-?-?-?- Negative 150 -?-?-?-?-?-?-?-?-?-?-?-?- SM- no vb crampi ng 09/17/21 -?-?-?-?-?-?-?-?-?-?-?-?- 21w 1d 170 lb 4 oz (+11 lb 4 oz) 124/82 Negative -?-?-?-?-?-?-?-?-?-?-?-?- Negative 149 -?-?-?-?-?-?-?-?-?-?-?-?- MH-Recent covid. On ASA. Growth US 32 and 36wk ordered. No VB, LOF. Good FM. 10/16/21 -?-?-?-?-?-?-?-?-?-?-?-?- 25w 2d 171 lb 2 oz (+12 lb 2 oz) 120/88 Negative -?-?-?-?-?-?-?-?-?-?-?-?- Negative 147 -?-?-?-?-?-?-?-?-?-?-?-?- JV- no complaint s today.no loss of fluid, vaginal bleeding, or dec fm. 11/09/21 -?-?-?-?-?-?-?-?-?-?-?-?- 28w 5d 123/75 -?-?-?-?-?-?-?-?-?-?-?-?- -?-?-?-?-?-?-?-?-?-?-?-?- 11/09/21 -?-?-?-?-?-?-?-?-?-?-?-?- 28w 5d 175 lb 4 oz (+16 lb 4 oz) 138/88 Negative -?-?-?-?-?-?-?-?-?-?-?-?- Negative 147 29 -?-?-?-?-?-?-?-?-?-?-?-?- JV- JV- no lof, vaginal bleeding , or dec fm. rhogam has to be given on l&d due to office supply issue 11/30/21 -?-?-?-?-?-?-?-?-?-?-?-?- 31w 5d 180 lb (+21 lb) 112/80 Negative -?-?-?-?-?-?-?-?-?-?-?-?- Negative 145 32 -?-?-?-?-?-?-?-?-?-?-?-?- SM- no vb lof g ood fm no regular ctx discussed GDM 12/21/21 -?-?-?-?-?-?-?-?-?-?-?-?- 34w 5d 181 lb 8 oz (+22 lb 8 oz) 130/92 126/84 Negative -?-?-?-?-?-?-?-?-?-?-?-?- Negative 155 34 -?-?-?-?-?-?-?-?-?-?-?-?- JV- initial bp e levated. (147/101) repeat when not talking much lower. start weekly nsts for possible PIH and if continues deliver at 37 weeks. prot:cr ratio ordered. 12/25/21 -?-?-?-?-?-?-?-?-?-?-?-?- 35w 2d 180 lb (+21 lb) 104/63 Negative -?-?-?-?-?-?-?-?-?-?-?-?- Negative 150 35 Breech -?-?-?-?-?-?-?-?-?-?-?-?- SM- all bps WNL at home, neg protein in urine, reviewed preeclampsia precautions. discussed ECV if still breech. no vb lof good fm no regular ctx no coreas bv 01/04/22 -?-?-?-?-?-?-?-?-?-?-?-?- 36w 5d 185 lb 2 oz (+26 lb 2 oz) 128/86 Negative -?-?-?-?-?-?-?-?-?-?-?-?- Negative 156 36 Cephalic 1 -?-?-?-?-?-?-?-?-?-?-?-?- 50 -3 JV- no lof , vaginal bleeding , or dec fm. normal growth scan. vtx presentation today! 01/09/22 -?-?-?-?-?-?-?-?-?-?-?-?- 37w 3d 184 lb 8 oz (+25 lb 8 oz) 132/92 132/89 Negative -?-?-?-?-?-?-?-?-?-?-?-?- Negative 155 37 Cephalic 2 -?-?-?-?-?-?-?-?-?-?-?-?- 70 -2 JV- bp's s tarting to creep up in the office but log from home shows pressures in 115-120/70's rang and asymptomatic. plan to collect a protein:cr ratio. 01/10/22 -?-?-?-?-?-?-?-?-?-?-?-?- 37w 4d 182 lb 12.211 oz (+23 lb 12.211 oz) 147/97 -?-?-?-?-?-?-?-?-?-?-?-?- -?-?-?-?-?-?-?-?-?-?-?-?- ROS Constitutional Constitutional: Denies change in weight, fatigue, fever(s), headache(s), poor appetite or weakness Eyes Eyes: Denies blurry vision, change in vision, seeing flashes or spots in vision ENT HEENT: Denies dizziness, headache(s), loss taste/smell or sore throat Cardiovascular Cardiovascular: Denies chest pain, dizziness, dyspnea, irregular heart rhythm, leg edema, palpitations, rapid heart rate or vomiting Respiratory/Chest Respiratory/Chest: Denies chest tightness, cough, dyspnea or breast pain Gastrointestinal Gastrointestinal: Denies abdominal pain, anorexia, constipation, cramping, diarrhea, hemorrhoids, vomiting or weight changes Genitourinary Genitourinary: Denies dysuria, flank pain, genital lesions, genital pain, urinary frequency or urinary urgency Musculoskeletal Musculoskeletal: Denies back pain, difficulty walking, joint pain, limited range of motion, muscle cramps or numbness Integumentary Integumentary: Denies lesions or unusual bruising Neurologic Neurologic: Denies abnormal movements, abnormal speech, dizziness, numbness, seizure-like activity or syncope Psychiatric Psychiatric: Denies anxiety, behavioral changes, change in appetite, change in libido, cognitive impairment, confusion, depression, difficulty concentrating, hallucinations or suicidal thoughts Endocrine Endocrinology: Denies excessive sweating, polydipsia or polyuria Hematologic/Lymphatic Hematologic/Lymphatic: Denies easy bleeding, easy bruising or lymphadenopathy Allergic/Immunologic Allergic/Immunologic: Denies itchy eyes, lip swelling, seasonal rhinorrhea, rhinitis, throat swelling, tongue swelling, eczemia, wheezing or asthma Vital Signs Vital Signs Vital Signs: 01/10/22 07:27 01/10/22 07:28 Temperature 97.9 F Temperature Source Temporal Pulse Rate 84 Blood Pressure 147/97 H BP Systolic 147 BP Diastolic 97 Weight Weight: 182 lb 12.211 oz Body Mass Index (BMI) 28.6 Physical Exam Const alert, oriented x3, no apparent distress and healthy appearing General Appearance: cooperative; Negative for anxious HEENT normocephalic Face and Sinus: normal facial exam Eyes EOMs intact bilaterally and no scleral icterus General Eye: normal appearance of both eyes Neck full ROM and supple Lymph Lymphatic: no lymphadenopathy noted Chest Chest: abnormal inspection of the chest Resp normal respiratory effort Effort and Inspection: able to speak in complete sentences Cardio regular rate GI soft to palpation and non-tender Inspection: gravid Palpation: soft; Negative for tender external exam normal Back/Spine no CVA tenderness Extremity normal to inspection, full ROM and no clubbing, cyanosis or edema General Extremity: Negative for calf tenderness or edema Skin Lesions: no lesions Rashes: no rashes Psych mental status grossly normal Labs Labs Labs: Blood Type O NEGATIVE Antibody Screen NEGATIVE Hct 32.4 % (37-47) L Hgb 10.8 g/dL (12.0-15.0) L Obstetrics US Syphilis Total Ab Non-reactive Rubella IgG Antibody Reactive (Nonreactive) Hep Bs Antigen Non-Reactive (Nonreactive) Chlamydia DNA (MARY) Negative (Negative) Neisseria gonorrhoeae DNA (MARY) Negative (Negative) HIV 1&2 Antibody Non-Reactive (Nonreactive) Glucose 1 Hr 50 gm 161 mg/dL (70-140) H Rhogam given: Yes Assessment & Plan (1) Gestational diabetes: QUALIFIERS: Gestational diabetes mellitus control: diet-controlled Trimester: third trimester Qualified Code(s): O24.410 - Gestational diabetes mellitus in , diet controlled COMMENT: diet controlled growth us 36, deliver at 39 (2) Abnormal GTT (glucose tolerance test): COMMENT: nutrition and endo referral sent along with testing supplies (3) COVID-19 affecting , antepartum: COMMENT: asa 81 mg qd, growth US @ 32 and 36 weeks, nl growth at 32 weeks (4) History of gestational hypertension: COMMENT: nl baseline labs. baby ASA 5/20- pressures starting to rise. start weekly nsts and sending rpt prot:Cr ratio (5) GBS (group B streptococcus) UTI complicating : COMMENT: <[address]:no antibiotic but will need treated in labor (6) Rh negative status during : COMMENT: Needs rhogam PRN and at 28 weeks (7) Supervision of high risk , antepartum: COMMENT: PRR SETH: 01/20/22 PC: Steffi Spouse: Ronald (8) : QUALIFIERS: Weeks of gestation: 37 weeks Qualified Code(s): Z3A.37 - 37 weeks gestation of COMMENT: anatomy nl, carrier, ntd screen, and genetic declined. 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 Pain management: plans epidural. GBS positive- start pcn when pitocin starts. Management of any complications: GDMA1- glucose x 2 1 hr apart. if normal, q2 hr glucose levels until 6 cm then q 1 hr. I have reviewed the [facility] and made any clinically relevant updates.
[2022-01-10 08:20] LABS: Absolute Lymphocyte Count 1.94 X10^3/uL (0.83-4.51); Absolute Neutrophil Count 5.6 X10^3/uL (2.0-7.7); Basophil# 0.05 X10^3/uL; Basophil% 0.6 % (0-1); Eosinophils% 1.2 % (0-5); Hematocrit 30.9 % (37-47); Hemoglobin 9.9 g/dL (12.0-15.0); Lymphocyte # 1.94 X10^3/ul (0.83-4.51); Lymphocyte % 23.4 % (19-41); Mean Corpuscular Hgb 27.3 pg (27.0-32.0); Mean Corpuscular Volume 85.1 fL (81-99); Mean Platelet Vol. 10.5 fl (6.2-12.0); Monocyte# 0.55 X10^3/uL; Monocyte% 6.6 % (0-10); NRBC Flagged by Analyzer 0 % (0-5); Neutrophil # 5.61 X10^3/uL (2.7-7.7); Neutrophil % 67.6 % (47-70); Platelet Count 202 K/mm3 (150-450); RBC Distribution Width CV 12.9 % (11.6-14.6); RBC Distribution Width SD 39.3 fl (35.1-43.9); Red Blood Count 3.63 M/mm3 (4.2-5.4); White Blood Count 8.3 K/mm3 (4.4-11.0)
[2022-01-10 08:26] LABS: Bedside Glucose 87 mg/dL (74-106)
[2022-01-10 11:10] LABS: Bedside Glucose 81 mg/dL (74-106)
[2022-01-10] MEDS: Penicillin G 3,000,000 Units 50 ML 100 UNITS IV (12:09)
[2022-01-10] MEDS: LACTATED RINGERS 500 ML 999 ML IV (12:57)
[2022-01-10] MEDS: fentaNYL-bupivacaine (epidural) 100 ML BAG EPIDURAL (13:53)
[2022-01-10] MEDS: Oxytocin 30 units/NS 500 ml 30 UNITS/500 ML IV.SOLN 334 UNITS IV (16:14)
[2022-01-10 16:21] LABS: Bedside Glucose 75 mg/dL (74-106)
[2022-01-10 16:40] LABS: Bedside Glucose 73 mg/dL (74-106)
--- NOTE | 2022-01-10 16:54 | EX.PCM.OBRPT ---
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 (3) Supervision of high risk , antepartum: COMMENT: PRR SETH: 01/20/22 PC: Steffi Spouse: Ronald (4) Rh negative status during : COMMENT: Needs rhogam PRN and at 28 weeks (5) GBS (group B streptococcus) UTI complicating : COMMENT: <[address]:no antibiotic but will need treated in labor (6) History of gestational hypertension: COMMENT: nl baseline labs. baby ASA 5/20- pressures starting to rise. start weekly nsts and sending rpt prot:Cr ratio (7) COVID-19 affecting , antepartum: COMMENT: asa 81 mg qd, growth US @ 32 and 36 weeks, nl growth at 32 weeks (8) Abnormal GTT (glucose tolerance test): COMMENT: nutrition and endo referral sent along with testing supplies (9) Breech presentation: COMMENT: if persistent recommend ECV (10) Gestational diabetes: QUALIFIERS: Gestational diabetes mellitus control: diet-controlled Trimester: third trimester Qualified Code(s): O24.410 - Gestational diabetes mellitus in , diet controlled COMMENT: diet controlled growth us 36, deliver at 39 Maternal Data Information SETH Calculator Estimated Delivery Date Method Current WG Current Estimate 01/27/22 Ultrasound #1 37w 4d Other Estimates 01/20/22 LMP (Certain) 38w 4d Final SETH: 01/27/22 Final SETH Source: US <20 weeks Vaginal Delivery Maternal Presentation Maternal Presentation: Medically Indicated Induction Maternal Presentation: Mild pre-eclampsia Type of Induction: Pitocin and Amniotomy Operative Information Date of Procedure: 01/10/22 Pre-Operative Diagnosis: 37 weeks ,, mild pre-eclampsia, gestational diabetes (GDMA1) Post-Operative Diagnosis: 37 weeks ,, mild pre-eclampsia, gestational diabetes (GDMA1) Surgery / Procedure Performed: Spontaneous Vaginal Delivery Type of Anesthesia: Epidural Estimated Blood Loss: 100 Findings Description of Procedure: Patient began pushing and delivered the head in the ROEL presentation. The head was delivered atraumatically and a loose nuchal cord ?1 was identified and easily reduced over the infant's head. The anterior and posterior shoulders delivered without complication followed by the rest of the and the was placed on the maternal abdomen. Delayed cord clamping was employed for approximately 60 seconds. Cord was clamped and cut and gentle traction was applied to the cord and the placenta delivered spontaneously immediately following it was noted to be intact with three-vessel cord. The perineum and vagina were inspected and noted to have a 1st degree perineal laceration. The laceration was repaired using a 3-0 vicryl rapide suture. EBL was 100 cc. Patient and infant tolerated delivery well. Presentation: Vertex Amniotic Fluid Description: Clear Placental Delivery Description: Spontaneous Placenta Disposition: [facility] Cord Vessel Description: 3 Vessels Cord Entanglement: Around neck x 1, loose Nuchal Cord Compression: Without compression Infant A Gender: Male (1 minute): 8 (5 minute): 9 Delayed Cord Clamping: Yes Post Vaginal Delivery Medications Given After Delivery: IV Pitocin Episiotomy Description: None Laceration: 1st degree Complication Complications: None Multi Select Codes Urinary/Genital Urinary/Genital CPT Codes: 48883 Vaginal Delivery [facility]
--- NOTE | 2022-01-10 16:58 | PCM.DC ---
Discharge Instructions Diet Discharge Diet: No restrictions Activity Discharge Activity: Return to Normal Activity, May Not Drive (while taking narcotic pain medications.) and May Shower May resume sexual activity in: 4-6 weeks Dressing / Incision Call your doctor if your incision/area has: Continuous Slow Oozing, Sudden Increased Bleeding, Increased Pain/ Swelling, Increased Redness and Foul Smelling Discharge Follow Up Care Please Follow Up With: Marissa Kruger DO When: Call [phone] to make an appointment with your doctor in 6 weeks. If you had elevated blood pressure or 4th degree laceration, you will need to be seen in 2 weeks. Test Results: Test results from this visit will be discussed in further detail at your follow-up appointment, if applicable. Discharge Plan Admission Admit Date/Time: 01/10/22 07:02 Primary Reason for Your Visit: vaginal delivery Attending Provider: Marissa Kruger Primary Care Provider: Care Physician,Anjana Primary Discharge Orders/Prescriptions Prescriptions: New ibuprofen 800 mg tablet 800 mg PO Q8H PRN (Reason: pain) 7 Days Qty: 30 RF: 0 Continued PNV-DHA 27 mg iron-1 mg -300 mg capsule 1 cap PO DAILY RF: 0 Discontinued aspirin 81 mg tablet,chewable 81 mg PO DAILY RF: 0 Referrals / Follow Up: Care Physician,No Primary [Primary Care Provider] - Disposition Disposition (needs filled in before D/C Order can be placed): Home, Self Care
[2022-01-10] MEDS: 0.9% Saline Lock 10 ML Syringe IV (18:40)
[2022-01-10] MEDS: Benzocaine/Lanolin/Aloe Vera 1 SPRAY EACH TOPICAL (20:35)
[2022-01-10] MEDS: Ibuprofen 600 MG Tablet PO (21:04)
[2022-01-11 00:07] VITALS: BP 117/80; PULSE 76; RESP 14; TEMP 37
[2022-01-11 04:13] VITALS: BP 121/84; PULSE 72; RESP 16; TEMP 36.6
[2022-01-11] MEDS: Ibuprofen 600 MG Tablet PO ×2 (04:16→13:45)
[2022-01-11 06:46] LABS: Bedside Glucose 85 mg/dL (74-106)
--- NOTE | 2022-01-11 07:58 | PN.OBGYN_ITS ---
Subjective Subjective Patient doing well without complaints. Tolerating PO. Ambulating and voiding without difficulty. Feeding well. Denies chest pain, shortness of breath, calf pain/swelling, fevers, chills, lightheadedness. her baby is in the NICU for respiratory difficulty. Objective Data Objective Data Vital Signs: Vital Signs Temp Pulse Resp BP Pulse Ox 98 F 72 16 121/84 H 95 01/11/22 04:13 01/11/22 04:13 01/11/22 04:13 01/11/22 04:13 01/10/22 20:37 Oxygen Delivery Method Room Air Weight: 182 lb 12.211 oz Body Mass Index (BMI) 28.6 Intake & Output: Intake and Output for Last 24 Hours 01/09/22 01/10/22 01/11/22 23:59 23:59 23:59 Intake Total 2361.63 / 2361.63 600 / 600 Output Total 1400 / 1400 900 / 900 Balance 961.63 / 961.63 -300 / -300 Lab / Micro Data Result Diagrams: 01/10/22 08:05 Labs: Laboratory Results - last 24 hr 01/10/22 07:56: POC Glucose 87 01/10/22 08:05: WBC 8.3, RBC 3.63 L, Hgb 9.9 L, Hct 30.9 L, MCV 85.1, MCH 27.3, MCHC 32.0, RDW Std Deviation 39.3, RDW Coeff of Linda 12.9, Plt Count 202, MPV 10.5, Immature Gran % (Auto) 0.600, Neut % (Auto) 67.6, Lymph % (Auto) 23.4, [place] % (Auto) 6.6, Eos % (Auto) 1.2, Baso % (Auto) 0.6, Absolute Neuts (auto) 5.6, Absolute Lymphs (auto) 1.94, Nucleated RBC % 0 01/10/22 08:05: Blood Type O NEGATIVE, Antibody Screen TNP 01/10/22 08:05: Antibody Screen NEGATIVE 01/10/22 09:04: POC Glucose 81 01/10/22 13:05: POC Glucose 75 01/10/22 16:31: POC Glucose 73 L 01/10/22 20:50: Screen NEGATIVE, Baby's Blood Type A POSITIVE, Baby's DEBRA TNP 01/11/22 06:38: POC Glucose 85 Micro: Microbiology 01/10/22 08:05 Nasal Secretion SARS-CoV-2 Antigen (Rapid) - Final ROS Constitutional Constitutional: Reports systems reviewed and no addt'l complaints, except as documented Gastrointestinal Gastrointestinal: Denies bloating, constipation, cramping, diarrhea, nausea or vomiting Genitourinary Genitourinary: Reports other Details: Denies vaginal odor, vaginal bleeding, or vaginal discharge ; Denies difficulty urinating or flank pain Physical Exam Const alert, oriented x3 and no apparent distress General Appearance: cooperative and comfortable Resp normal respiratory effort Cardio regular rate GI normal to inspection, nondistended, normoactive bowel sounds Palpation: soft Rectal Exam: other Extremity normal to inspection, no calf tenderness and no pedal edema Assessment & Plan (1) Status post normal vaginal delivery: COMMENT: IOL 37 weeks for pre-e bb girl Sandee EVANS PLAN: s/p PPD # 1 1. routine post delivery care 2. breast feeding- support given. Baby in NICU bed currently due to respiratory difficulty 3. rh positive 4. rubella immune 5. pt asking for stool softeners today 6. plan for dc to hotel status tomorrow evening.
[2022-01-11 08:20] VITALS: BP 128/99; PULSE 98; RESP 18; TEMP 36.3; O2SAT 98
[2022-01-11] MEDS: Docusate Sodium 100 MG Capsule PO (08:35)
[2022-01-11 13:00] VITALS: BP 127/93; PULSE 91; RESP 18; TEMP 36.2; O2SAT 97
--- NOTE | 2022-01-11 13:50 | NURSING ---
Red top tube drawn for transport and given to [facility].
--- NOTE | 2022-01-11 14:41 | NURSING ---
Ibuprofen script filled from retail pharmacy and sent with pt to [facility], being transported at this time. Pt to call for follow up appointment at [place] in 6 weeks.
== END 2022-01-11 14:55 | disposition home or self-care (01) | DRG 806 ==
PROVIDERS: Admitting Provider Obstetrics & Gynecology; Visit Provider Obstetrics & Gynecology
DX: O14.04 Mild to moderate pre-eclampsia, complicating childbirth (principal); Z37.0 Single live birth; O98.82 Other maternal infectious and parasitic diseases complicating childbirth; B95.1 Streptococcus, group B, as the cause of diseases classified elsewhere; O24.410 Gestational diabetes mellitus in pregnancy, diet controlled; Z3A.37 37 weeks gestation of pregnancy; Z79.82 Long term (current) use of aspirin; Z86.16 Personal history of COVID-19; Z67.21 Type B blood, Rh negative; O26.23 Pregnancy care for patient with recurrent pregnancy loss, third trimester; O70.0 First degree perineal laceration during delivery; O69.81X0 Labor and delivery complicated by cord around neck, without compression, not applicable or unspecified
CPT/HCPCS: 59025; 59050; 82962; 85025; 85461; 86850; 86900; 86901; 87426; 90384; 99218; J7120; A4216; G0378; J2790